=== PATIENT | female | born 1985 | race American Indian/Alaskan Native ===

== ENCOUNTER 2022-05-25 02:04 | Emergency (ER) | payer MEDICAID ==
[2022-05-25] MEDS ORDERED: ACETAMINOPHEN 500 MG TAB PO ONE (02:41)
--- NOTE | 2022-05-25 02:42 | Emergency Department Report ---
ED General Adult HPI - General Chief complaint: Pain General Stated complaint: CHEST PAIN PUI?: Yes Time Seen by Provider: 05/25/22 02:32 Source: patient, EMS ( EMS documentation not available at time of chart dictation ), RN notes reviewed Mode of arrival: Stretcher Limitations: No Limitations - History of Present Illness Initial comments: The patient was evaluated in the emergency department for symptoms described in the history of present illness. He/she was evaluated in the context of the global COVID-19 pandemic, which necessitated consideration that the patient might be at risk for infection with the virus that causes COVID-19. Institutional protocols and algorithms that pertain to the evaluation of patients at risk for COVID-19 are in a state of rapid change based on information released by regulatory bodies including the CDC and federal and state organizations. These policies and algorithms were followed during the patient's care in the emergency department. Please note that these policies, procedures and recommendations changed on a rapid basis. The patient is a 36-year-old female who is not vaccinated against COVID-19, with a history of hypertension. She presents to the department today with a c omplaint of central and left-sided chest wall pain, that does not radiate to the back, arms or neck. There is no vomiting, diaphoresis or exertional shortness of breath, and the patient denies , oral contraceptive use, travel, surgery, immobilization, DVT and pulmonary embolism risk factors. 3 days ago, developed a cough with congestion. Has taken outpatient COVID test which has been negative. Has been taking Tylenol, Motrin and steroids. No loss of taste or smell. No vomiting or diarrhea. No urinary symptoms. No abdominal pain. Chest wall pain is aching and sharp, increases with palpation and range of motion and decreases with rest. There is no known family or personal history of DVT or pulmonary embolism risk factors. Chest wall pain started approximately 1 to 1-1/2 hours ago -: Gradual, hour(s), days(s) Location: chest Radiation: non-radiation Quality: other Consistency: other Improves with: other Worsens with: other - Related Data Previous Rx's Medication Instructions Recorded Last Taken Type Acetaminophen [Non-Aspirin Extra 500 mg PO Q6HR PRN #30 tablet 05/25/22 Unknown Rx Strength] Albuterol Sulfate [Proair 90 mcg IH Q4HR PRN #2 aer.pow.ba 05/25/22 Unknown Rx Respiclick] Ibuprofen [Motrin] 600 mg PO Q8H PRN #30 tablet 05/25/22 Unknown Rx Allergies Allergy/AdvReac Type Severity Reaction Status Date / Time amoxicillin Allergy Hives Verified 05/25/22 02:49 ED Review of Systems ROS: Stated complaint: CHEST PAIN Other details as noted in HPI Constitutional: fever. denies: malaise, weakness Eyes: denies: eye discharge ENT: congestion Respiratory: cough. denies: wheezing Cardiovascular: denies: chest pain Gastrointestinal: denies: abdominal pain Genitourinary: denies: dysuria Musculoskeletal: myalgia Neurological: denies: weakness ED Past Medical Hx - Medications Home Medications: Home Medications Medication Instructions Recorded Confirmed Last Taken Type Acetaminophen [Non-Aspirin Extra 500 mg PO Q6HR PRN #30 tablet 05/25/22 Unknown Rx Strength] Albuterol Sulfate [Proair 90 mcg IH Q4HR PRN #2 aer.pow.ba 05/25/22 Unknown Rx Respiclick] Ibuprofen [Motrin] 600 mg PO Q8H PRN #30 tablet 05/25/22 Unknown Rx ED Physical Exam - General Limitations: No Limitations General appearance: alert, in no apparent distress - Head Head exam: Present: atraumatic, normocephalic - Eye Eye exam: Present: normal appearance, EOMI. Absent: nystagmus - ENT ENT exam: Present: normal exam, normal orophraynx, mucous membranes moist, normal external ear exam - Neck Neck exam: Present: normal inspection, full ROM. Absent: tenderness, meningismus - Respiratory Respiratory exam: Present: normal lung sounds bilaterally, chest wall tenderness (Chaperoned by nurse Daly). Absent: respiratory distress, wheezes, rales, rhonchi, stridor, accessory muscle use, decreased breath sounds, prolonged expiratory - Cardiovascular Cardiovascular Exam: Present: regular rate, normal rhythm, normal heart sounds. Absent: bradycardia, tachycardia, irregular rhythm, systolic murmur, diastolic murmur, rubs, gallop - GI/Abdominal GI/Abdominal exam: Present: soft. Absent: distended, tenderness, guarding, rebound, rigid, pulsatile mass - Extremities Exam Extremities exam: Present: normal inspection, full ROM, normal capillary refill, other (2+ pulses noted in the bilateral upper and lower extremities. There is no palpable cord. negative Homans sign. Muscular compartments are soft. The pelvis is stable.). Absent: pedal edema, calf tenderness - Back Exam Back exam: Present: normal inspection, full ROM. Absent: tenderness, CVA tenderness (R), CVA tenderness (L), paraspinal tenderness, vertebral tenderness - Neurological Exam Neurological exam: Present: alert, oriented X3, normal gait, other (No facial droop. Tongue midline. Extraocular movements intact bilaterally. Facial sensation intact to light touch in V1, V2, V3 distribution bilaterally. 5 and a 5 strength in 4 extremities. Sensation intact to light touch in 4 extremiti es.). Absent: motor sensory deficit - Psychiatric Psychiatric exam: Present: normal affect, normal mood - Skin Skin exam: Present: warm, dry, intact, normal color. Absent: rash ED Course Vital Signs 05/25/22 05/25/22 05/25/22 02:07 02:55 02:58 Temperature 98 F Pulse Rate 96 H 87 Respiratory 18 18 Rate Blood Pressure 132/90 Blood Pressure 150/75 [Right] O2 Sat by Pulse 98 100 Oximetry O2 Sat by Pulse Oximetry [ Digit-Finger] 05/25/22 05/25/22 05:01 05:40 Temperature Pulse Rate 91 H Respiratory 14 Rate Blood Pressure Blood Pressure 131/67 [Right] O2 Sat by Pulse 100 Oximetry O2 Sat by Pulse 100 Oximetry [ Digit-Finger] - Reevaluation(s) Reevaluation #1: 05/25/22 03:01 Differential diagnosis, including but not limited to: Costochondritis, COVID-19, GERD, gastritis, hiatal hernia, pneumonia, myocarditis, pericarditis Assessment and plan: 36-year-old female, who is not currently tachycardic, tachypneic or hypoxic, who denies DVT and pulmonary embolism risk factors, who is low risk by Wells criteria for pulmonary embolism, EKG unremarkable, and PERC negative. Patient at low risk for major adverse cardiac event as per heart score Patient has equal pulses in the upper and lower extremities, no pulsatile abdominal mass, and presumed an unremarkable x-ray of the chest, therefore, aortic disease is very unlikely. Patient at low risk for major adverse cardiac event as per heart score. Given reproducibility, history and physical, do not have a high suspicion for GERD, gastritis, hiatal hernia at this time. Pneumonia is unlikely given history, physical, and x-ray findings. Patient most likely has costochondritis, from cough and congestion, from probable COVID-19/viral syndrome. Check troponin x2. Obtain x-ray of the chest. Treat patient's symptoms. Reassess. Discussed the plan of care with the patient. She is agreeable to the plan of care. All questions have been answered. Reevaluation #2: 05/25/22 05:00 EKG unchanged x2. Troponin negative x2. Chest x-ray negative. Patient resting comfortably in stretcher and in no acute distress, texting and playing on the cellular phone. Discussed findings with patient and significant other with patient's permission. This is likely costochondritis, likely secondary to viral syndrome/COVID-19. May be discharged to follow-up as an outpatient. Return precautions are reviewed - Pulse Oximetry Interpretation Digit-Finger Initial Pulse Oximetry Readin O2 Sat by Pulse Oximetry: 100 Actions Taken: none ED Medical Decision Making - Lab Data Result diagrams: 05/25/22 03:01 05/25/22 03:01 Vital Signs 05/25/22 02:07 Temperature 98 F Pulse Rate 96 H Respiratory 18 Rate Blood Pressure 132/90 O2 Sat by Pulse 98 Oximetry - EKG Data -: EKG Interpreted by Dc EKG shows normal: sinus rhythm Rate: normal - EKG Data When compared to previous EKG there are: previous EKG unavailable 05/25/22 02:58 The EKG is interpreted at 02: 42 Sinus rhythm, rate 83 bpm. Normal axis, normal P wave axis, high left ventricular voltage, normal intervals. This is not a STEMI. This is an unremarkable EKG - Radiology Data Radiology results: pending, report reviewed, image reviewed CHEST 2 VIEWS INDICATION / CLINICAL INFORMATION: chest wall pain COUGH; HX OF HTN. COMPARISON: None available. FINDINGS: SUPPORT DEVICES: None. HEART / MEDIASTINUM: Heart size and mediastinal contour appear within normal limits. LUNGS / PLEURA: No significant pulmonary or pleural abnormality. No pneumothorax. BONES: No significant osseous abnormality. ADDITIONAL FINDINGS: No significant additional findings. IMPRESSION: 1. No active cardiopulmonary disea se. Signer Name: Bharat Stinson II, MD Signed: 05/25/2022 3:18 AM Workstation Name: [id number] Critical care attestation.: If time is entered above; I have spent that time in minutes in the direct care of this critically ill patient, excluding procedure time. ED Disposition Clinical Impression: Chest wall pain, Suspected COVID-19 virus infection, COVID-19 vaccination not done Disposition: 01 HOME / SELF CARE / HOMELESS Is pt being admited?: No Does the pt Need Aspirin: No Condition: Good Instructions: Costochondritis Additional Instructions: As we discussed, the patient most likely has novel coronavirus/COVID. the symptoms of COVID will typically persist 10 to 14 days. There is no cure at this time for COVID. Please make certain to self isolate and self quarantine, follow-up with an outpatient primary care doctor within the next 3 to 5 days, wash hands with soap and water frequently, thoroughly and often, patient may take the prescribed medications as needed and directed. Advance diet and drink plenty of fluids as tolerated. Avoid interactions with the very elderly, very young, and those with chronic medical conditions. Return to the emergency room right away with new pain, worsening pain, migration of pain, projectile vomiting, change in mental status, confusion, inability to tolerate liquid feeds, new, worsened or different symptoms not present on the initial emergency room evaluation. Please return to the emergency room right away with new pain, worsened pain, migration of pain, projectile vomiting, change in mental status, confusion, inability tolerate liquid feeds, new, worsened or different symptoms not present on the initial emergency room evaluation Prescriptions: Ibuprofen [Motrin] 600 mg PO Q8H PRN #30 tablet PRN Reason: Pain Acetaminophen [Non-Aspirin Extra Strength] 500 mg PO Q6HR PRN #30 tablet PRN Reason: Pain , Severe (7-10) Albuterol Sulfate [Proair Respiclick] 90 mcg IH Q4HR PRN #2 aer.pow.ba PRN Reason: Wheezing Referrals: [facility] [Provider Group] - 3-5 Days Forms: Work/School Release Form(ED) Head Injury W/O Lac Exam - Exam General: Vital signs noted. No distress. Alert and acting appropriately. Heart Score - HEART Score History: Slightly suspicious EKG: Normal Age: < 45 Risk factors: No known risk factors Troponin: < normal limit HEART Score: 0 - EKG Read Time Time EKG Completed: 02:42 EKG Read Time: 02:42 - Critical Actions Critical Actions: 0-3 pts:0.9-1.7%risk of adverse cardiac event.Candidate for discharge
[2022-05-25 03:25] LABS: Hematocrit 32.2 % (30.3-42.9); Hemoglobin 10.1 gm/dl (10.1-14.3); Mean Corpuscular HGB Conc 31 % (30-34); Mean Corpuscular Volume 75 fl (79-97); Platelet Count 287 K/mm3 (140-440); Red Blood Count 4.28 M/mm3 (3.65-5.03); Red Cell Distribution Width 17.2 % (13.2-15.2)
[2022-05-25 03:46] LABS: Alanine Aminotransferase 8 units/L (7-56); Blood Urea Nitrogen 8 mg/dL (7-17); Calcium 8.7 mg/dL (8.4-10.2); Hemolysis Index 60
[2022-05-25 03:51] LABS: BUN/Creatinine Ratio 11
[2022-05-25 03:52] LABS: INR 0.93 (0.87-1.13)
[2022-05-25] MEDS ORDERED: POTASSIUM CHLORIDE ER 20 MEQ TAB PO ONE (03:54)
[2022-05-25] MEDS ORDERED: KETOROLAC 30 MG/1 ML INJ IV ONE (04:00)
--- NOTE | 2022-05-25 04:23 | XRay Report ---
CHEST 2 VIEWS INDICATION / CLINICAL INFORMATION: chest wall pain COUGH; HX OF HTN. COMPARISON: None available. FINDINGS: SUPPORT DEVICES: None. HEART / MEDIASTINUM: Heart size and mediastinal contour appear within normal limits. LUNGS / PLEURA: No significant pulmonary or pleural abnormality. No pneumothorax. BONES: No significant osseous abnormality. ADDITIONAL FINDINGS: No significant additional findings. IMPRESSION: 1. No active cardiopulmonary disease. Signer Name: Bharat Stinson II, MD Signed: 05/25/2022 4:18 AM Workstation Name: [id number]
[2022-05-25 05:18] LABS: Anisocytosis 1+; Band Neutrophils # (Manual) 0.1 K/mm3; Basophils % (Manual) 0 % (0.0-1.8); Eosinophils % (Manual) 0 % (0.0-4.3); Platelet Estimate Consistent w Auto; Total Cells Counted 100
[2022-05-25 06:33] VITALS: BP 142/76
--- NOTE | 2022-05-25 15:20 | Electrocardiograph Report ---
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
--- NOTE | 2022-05-25 15:20 | Electrocardiograph Report ---
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
== END 2022-05-25 05:53 | disposition home or self-care (01) ==
LOC: ED 02:04
DX: R07.89 Other chest pain (principal); Z20.822 Contact with and (suspected) exposure to COVID-19; Z28.9 Immunization not carried out for unspecified reason; Z88.0 Allergy status to penicillin
CPT/HCPCS: 36415; 71046; 80053; 82550; 84484; 84702; 85007; 85025; 85610; 93005; 96374; 99284; J1885

== ENCOUNTER 2022-06-22 14:01 | Emergency (ER) | payer MEDICAID ==
--- NOTE | 2022-06-22 15:26 | Emergency Department Report ---
ED Headache HPI - General Chief Complaint: Headache Stated Complaint: HEADACHE Time Seen by Provider: 06/22/22 15:24 - History of Present Illness Allergies/Adverse Reactions: Allergies amoxicillin Allergy (Verified 05/25/22 02:49) Hives Home Medications: Ambulatory Orders Cetirizine HCl [ZyrTEC] 10 mg PO DAILY #30 capsule 06/22/22 Fluticasone [Flonase] 1 spray NS QDAY #1 bottle 06/22/22 predniSONE [Deltasone] 20 mg PO DAILY #5 tablet 06/22/22 ED Review of Systems ROS: Stated complaint: HEADACHE Other details as noted in HPI Comment: All other systems reviewed and negative ED Past Medical Hx - Past Medical History Previous Medical History?: Yes Hx Hypertension: Yes Hx Asthma: Yes - Surgical History Past Surgical History?: Yes Hx Appendectomy: Yes Additional Surgical History: Tubal ligation - Family History Family history: no significant - Social History Smoking Status: Never Smoker Substance Use Type: None - Medications Home Medications: Home Medications Medication Instructions Recorded Confirmed Last Taken Type Cetirizine HCl [ZyrTEC] 10 mg PO DAILY #30 capsule 06/22/22 Unknown Rx Fluticasone [Flonase] 1 spray NS QDAY #1 bottle 06/22/22 Unknown Rx predniSONE [Deltasone] 20 mg PO DAILY #5 tablet 06/22/22 Unknown Rx ED Physical Exam - General Limitations: No Limitations General appearance: alert, in no apparent distress - Head Head exam: Present: atraumatic, normocephalic - Eye Eye exam: Present: normal appearance - ENT ENT exam: Present: mucous membranes moist - Neck Neck exam: Present: normal inspection - Respiratory Respiratory exam: Present: normal lung sounds bilaterally. Absent: respiratory distress - Cardiovascular Cardiovascular Exam: Present: regular rate, normal rhythm. Absent: systolic murmur, diastolic murmur, rubs, gallop - GI/Abdominal GI/Abdominal exam: Present: soft, normal bowel sounds - Extremities Exam Extremities exam: Present: normal inspection - Back Exam Back exam: Present: normal inspection - Neurological Exam Neurological exam: Present: alert, oriented X3 - Psychiatric Psychiatric exam: Present: normal affect, normal mood - Skin Skin exam: Present: warm, dry, intact, normal color. Absent: rash ED Course Vital Signs 06/22/22 06/22/22 14:54 16:02 Temperature 98.2 F Pulse Rate 83 91 H Respiratory 20 Rate Blood Pressure 171/105 Blood Pressure 150/87 [Right] O2 Sat by Pulse 100 Oximetry ED Medical Decision Making - Medical Decision Making Lab Results 06/22/22 Range/Units 15:42 HCG, Quant < 2 (0-4) mIU/mL Vital Signs 06/22/22 06/22/22 14:54 16:02 Temperature 98.2 F Pulse Rate 83 91 H Respiratory 20 Rate Blood Pressure 171/105 Blood Pressure 150/87 [Right] O2 Sat by Pulse 100 Oximetry Critical care attestation.: If time is entered above; I have spent that time in minutes in the direct care of this critically ill patient, excluding procedure time. ED Disposition Clinical Impression: History of hypertension, Headache, Sinusitis, test negative Disposition: HOME / SELF CARE / HOMELESS Is pt being admited?: No Does the pt Need Aspirin: No Condition: Stable Instructions: Hypertension, Adult, [id number] Additional Instructions: CONTINUE YOUR HOME BP MEDS FOLLOW UP WITH PCP REFERRAL BELOW MONITOR BP MEDS ORDERED TODAY FOR SINUS 05/15 NEG 06/22 NEG Referrals: IRENE FLORES MD [Staff Physician] - 3-5 Days IRA BENNETT MD [Staff Physician] - 3-5 Days Forms: Accompanied Note, Work/School Release Form(ED) Time of Disposition: 15:26
[2022-06-22] MEDS ORDERED: ACETAMINOPHEN 500 MG TAB PO ONE (15:43)
[2022-06-22 16:40] VITALS: BP 139/83
== END 2022-06-22 17:30 | disposition home or self-care (01) ==
LOC: ED 14:01
DX: I10 Essential (primary) hypertension (principal); R51.9 Headache, unspecified; J01.90 Acute sinusitis, unspecified; Z32.02 Encounter for pregnancy test, result negative; Z90.89 Acquired absence of other organs
CPT/HCPCS: 36415; 84702; 99283